=== PATIENT | female | born 1985 | race Caucasian/White ===

== ENCOUNTER 2022-11-19 21:09 | Emergency (ER) | payer BC, SELFPAY ==
[2022-11-19 21:17] VITALS: BP 128/87; PULSE 95; RESP 18; TEMP 36.8; O2SAT 99
[2022-11-19 21:21] VITALS: BMI 28.3
--- NOTE | 2022-11-19 21:32 | ED.ALLEREA ---
HPI - Allergic Reaction General Chief complaint: Allergic Reaction Stated complaint: Allergic reaction per EMS Time Seen by Provider: 11/19/22 21:25 Source: patient Mode of arrival: EMS History of Present Illness HPI narrative: 37-year-old female without significant past medical history presents via EMS after she had a dessert containing walnuts and states that she immediately developed a rash with tongue swelling, change in voice, and states she has never been allergic to walnuts before. Patient did take 50 mg of Benadryl prior to arrival, EMS provided the patient with an EpiPen, Solu-Medrol. States that she feels much better and is speaking well. Related Data Previous Rx's Medication Instructions Recorded epinephrine 0.3 mg/0.3 mL 0.3 mg (0.3 mL) IM Q4H PRN 11/19/22 injection, auto-injector (EpiPen) anaphylaxis #2 ea Allergies Allergy/AdvReac Type Severity Reaction Status Date / Time apple Allergy Angioedema Verified 11/19/22 21:35 walnut Allergy Anaphylaxis Verified 11/19/22 21:35 Review of Systems Review of Systems: Pertinent positives and negatives as stated in HPI. [facility] Past Medical History Source: nursing notes reviewed Social History Social History Advance Directives: No Advance Directives Information Provided: No Physical Exam ED Vital Signs: Vital Signs - 24 hr 11/19/22 21:17 11/20/22 01:17 Temperature 98.2 F Pulse Rate 95 86 Respiratory Rate 18 15 Blood Pressure 128/87 96/62 Pulse Oximetry 99 98 Oxygen Delivery Method Room Air Room Air BMI result Body Mass Index 28.3 VITAL SIGNS: Reviewed. GENERAL: Well developed, well nourished, in no acute distress. HEAD: Normocephalic/atraumatic, EYES: PERRLA, EOMI EARS: Ext canals without abnormality NOSE: Nares patent bilateral OROPHARYNX: no oral lesions noted, posterior pharynx clear and no tongue/lip/facial swelling NECK: Supple, no adenopathy LUNGS: Normal breath sounds, no stridor/wheeze/rhonchi/rales, no tachypnea. SpO2<99> CARDIOVASCULAR: Regular rate and rhythm without noted murmurs ABDOMEN: Soft, non-tender, non-distended with bowel sounds. MUSCULOSKELETAL: No tenderness, deformities, or effusions noted on gross inspection. EXTREMITIES: No cyanosis, clubbing or edema. SKIN: Inspection of the skin reveals residual rash noted to upper anterior chest and across shoulders NEUROLOGIC: Alert and oriented x 4. Strength and sensation to light touch were grossly intact x 4. Medications Administered Discontinued Medications Generic Name Dose Route Start Last Admin Trade Name Freq PRN Reason Stop Dose Admin Famotidine 20 mg 11/19/22 22:14 11/19/22 22:48 Famotidine/Pf 20 Mg/2 Ml Vial IVPUSH 11/19/22 22:15 20 mg ONCE ONE Administration Medical Decision Making Medical Decision Making [facility] Narrative: 37-year-old female presents after angioedema reaction to walnuts with good resolution after receiving EpiPen, Benadryl, Solu-Medrol and currently is asymptomatic. Patient will be observed for 4 hours. 0110: Patient is feeling much better but complains of sore throat and on visualizing the tonsils does appear there may be some exudative material and will pursue a strep test and if negative patient will be discharged and already has EpiPen prescription. Strep testing is negative. Lab Data [facility] Lab Attestation statement: I reviewed the patient's lab results. Please see discussion above Labs: Lab Results 11/20/22 Range/Units 01:19 S. pyogenes GrpA MEENU Negative (Negative) Critical Care Time Critical Care Time Critical Care Time: Yes Total Critical Care Time: 30 Attestation: I personally attest to this time spent taking care of the patient. Discharge Plan Discharge Clinical Impression: Angioedema, [place] allergy Patient Disposition: Home, Self-Care Instructions: Angioedema (ED), Food Allergy (ED) Additional Instructions: 1. Follow-up with primary care provider on Tuesday. You have been prescribed an EpiPen and should use it should you experience any further lip/tongue/facial swelling or wheezing. Return to the ER for any worsening symptoms. Prescriptions: New epinephrine [EpiPen] 0.3 mg/0.3 mL auto-injector 0.3 mg IM Q4H PRN (Reason: anaphylaxis) Qty: 2 0RF
[2022-11-19] MEDS: Famotidine/PF 20 MG/2 ML VIAL IVPUSH (22:48)
[2022-11-20 01:17] VITALS: BP 96/62; PULSE 86; RESP 15; O2SAT 98
[2022-11-20 01:34] LABS: IDNOW Serial# 6674DD1D; Strep A Nucleic Acid Negative (Negative)
== END 2022-11-20 02:35 | disposition home or self-care (01) ==
PROVIDERS: Emergency Provider Student in an Organized Health Care Education/Training Program
DX: L50.0 Allergic urticaria (principal); Z20.822 Contact with and (suspected) exposure to COVID-19; Z79.899 Other long term (current) drug therapy
CPT/HCPCS: 36415; 87651; 96374; 99283; 99284